=== PATIENT | female | born 1935 | race Caucasian/White ===

== ENCOUNTER 2019-02-16 06:34 | Day surgery (SDC) | payer MEDICARE, BC ==
[~2019-02-16 06:34] MED LIST: Lactated Ringers 1,000 ML IV SCH
[2019-02-16] MEDS ORDERED: Lidocaine 2% 5 ML SDV ONE (07:24)
[2019-02-16] MEDS ORDERED: Propofol 200 MG/20 ML SDV ONE ×3 (07:24→07:51)
[2019-02-16] MEDS ORDERED: Ketamine 500 mg/10 ML MDV ONE (07:27)
[2019-02-16] MEDS ORDERED: ceFAZolin 1 GM Vial ONE (07:32)
[2019-02-16] MEDS ORDERED: Bupivacaine 0.5% 30 ML SDV ONE (07:33)
--- NOTE | 2019-02-16 07:55 | PCM.PREANE ---
Preanesthetic Assessment - Anesthesia/Transfusion/Family Hx Anesthesia History: Prior Anesthesia Reaction (post op delerium after last surgerues tka and klarissa) Other Type of Anesthesia Reaction Comment: daughter states she is slow to come out of anesthesia Family History of Anesthesia Reaction: No Transfusion History: Prior Transfusion Without Reaction - Review of Systems General: No Symptoms Pulmonary: No Symptoms Cardiovascular: No Symptoms Gastrointestinal: No Symptoms Neurological: Other (diabetic neuropathy) - Physical Assessment Height: 5 ft 4 in Weight: 58.513 kg ASA Class: 3 Mental Status: Alert & Oriented x3 Airway Class: Mallampati = 3 Dentition: Reports: Edentulous ROM/Head Extension: Full Lungs: Clear to Auscultation, Normal Respiratory Effort Cardiovascular: Regular Rate, Regular Rhythm - Lab Values: Laboratory Last Values POC Glucose 213 mg/dL (60-110) H 02/16/19 07:35 - Allergies Allergies/Adverse Reactions: Allergies Allergy/AdvReac Type Severity Reaction Status Date / Time atorvastatin calcium Allergy Cannot Verified 02/15/19 09:09 [From Lipitor] Remember ezetimibe [From Zetia] Allergy Cannot Verified 02/15/19 09:09 Remember fenofibrate Allergy Cannot Verified 02/15/19 09:09 Remember gemfibrozil Allergy Cannot Verified 02/15/19 09:09 Remember hydrochlorothiazide Allergy Cannot Verified 02/15/19 09:09 Remember - Blood Blood Available: No - Anesthesia Plan Pre-Op Medication Ordered: None - Acknowledgements Anesthesia Type Planned: General Anesthesia Pt an Appropriate Candidate for the Planned Anesthesia: Yes Alternatives and Risks of Anesthesia Discussed w Pt/Guardian: Yes Pt/Guardian Understands and Agrees with Anesthesia Plan: Yes Additional Comments: PMH: ckd with egfr of 36 in 2013, cad with remote hx of ami but normal coronaries at that time, no cardiac sx now, dm2 on insulin with glucose of 210 this am, hld, htn, thyroid replacement, RA on 5 mg of prednisone, PAD/PVOD on chart but daughter not aware of carotid aortic or periph vasc problems PLAN: No benzos, light on intraoperative narcotic, propofol/sevo anesthetic with LMA, will titrate additional narcotic as needed in PACU, intraoperative zofran and iv acetaminophen. PreAnesthesia Questionnaire HEENT History: Reports: Cataract, Hard of Hearing, Impaired Vision Other HEENT History: wears glasses, top and bottom denture, left hearing aid Cardiovascular History: Reports: CAD, High Cholesterol, Hypertension, ID Respiratory History: Reports: None Gastrointestinal History: Reports: Chronic Constipation, GI Bleed Genitourinary History: Reports: Other (See Below) Other Genitourinary History: overactive bladder [employer]ER History: Reports: Musculoskeletal History: Reports: Fracture, RA Other Musculoskeletal History: hx fx femur, uses w/c but can assist with transfer Neurological History: Reports: Other (See Below) Other Neuro History: fractured vertabrae Psychiatric History: Reports: Depression Endocrine/Metabolic History: Reports: Diabetes, Type II, Hypothyroidism Hematologic History: Reports: Anemia, Blood Transfusion(s) Immunologic History: Reports: None Oncologic (Cancer) History: Reports: Other (See Below) Other Oncologic History: skin cancer to forehead Dermatologic History: Reports: Other (See Below) Other Dermatologic History: abscess to rt buttock - Infectious Disease History Infectious Disease History: Reports: Chicken Pox, Measles, MRSA, Mumps, Rubella - Past Surgical History Head Surgeries/Procedures: Reports: None HEENT Surgical History: Reports: Cataract Surgery, Other (See Below) Other HEENT Surgeries/Procedures: right eardrum reconstruction 07/24/15 Cardiovascular Surgical History: Reports: None Respiratory Surgical History: Reports: None GI Surgical History: Reports: Cholecystectomy, Colonoscopy, EGD, Hernia, Abdominal Female Surgical History: Reports: Hysterectomy, Salpingo-Oophorectomy Endocrine Surgical History: Reports: None Neurological Surgical History: Reports: None Musculoskeletal Surgical History: Reports: Amputation, Carpal Tunnel, Knee Replacement, Other (See Below) Other Musculoskeletal Surgeries/Procedures:: second toe& big toe amputation-rt foot, booker knee replacement, ORIF rt hip, ORIF rt femur Oncologic Surgical History: Reports: None Dermatological Surgical History: Reports: Skin Biopsy - SUBSTANCE USE Smoking Status *Q: Never Smoker Recreational Drug Use History: No - HOME MEDS Home Medications: Home Meds predniSONE 5 mg PO DAILY 05/04/14 [History] Aspirin 81 mg PO DAILY 03/31/16 [History] Carbamide Peroxide [Debrox 6.5% Otic Soln] 3 drop EARBOTH BEDTIME PRN 03/31/16 [ History] amLODIPine Besylate [Amlodipine Besylate] 5 mg PO DAILY 03/31/16 [History] hydrALAZINE [Apresoline] 50 mg PO BID 03/31/16 [History] Insuln Asp Prot/Insulin Aspart [NovoLOG Mix 70-30] 6 unit SUBCUT ACDINNER #1 pen 04/02/16 [Rx] Magnesium Hydroxide [Milk of Magnesia] 30 ml PO Q24H PRN 04/02/16 [History] Metoprolol Tartrate 50 mg PO BID 04/02/16 [History] Multivitamin [Multivitamins] 1 tab PO DAILY 04/02/16 [History] traMADol HCl [Tramadol HCl] 50 tab PO TID PRN #15 tablet 04/02/16 [Rx] Insulin Aspart Protam & Aspart [Novolog Mix 70-30 Flexpen Syrn] 14 unit SQ ACBREAKFAST 06/13/16 [History] Famotidine [Pepcid] 40 mg PO DAILY 02/15/19 [History] Fluorouracil 1 applic TOP ASDIRECTED 02/15/19 [History] Iron Polysaccharide Complex [Poly-Iron] 150 mg PO DAILY 02/15/19 [History] Polyethylene Glycol 3350 [MiraLAX] 1 dose PO BID 02/15/19 [History] Sulfamethoxazole/Trimethoprim [Bactrim Ds Tablet] 1 tab PO BID 02/15/19 [History ] - CURRENT (IN HOUSE) MEDS Current Meds: Current Medications Lactated Ringer's (Ringers, Lactated) 1,000 mls @ 100 mls/hr IV ASDIRECTED INGRID Discontinued Medications Bupivacaine HCl (Marcaine 0.5%) Confirm Administered Dose 30 ml .ROUTE .STK-MED ONE Stop: 02/16/19 07:34 Cefazolin Sodium (Ancef) Confirm Administered Dose 3 gm .ROUTE .STK-MED ONE Stop: 02/16/19 07:33 Ketamine HCl (Ketalar) Confirm Administered Dose 500 mg .ROUTE .STK-MED ONE Stop: 02/16/19 07:28 Lidocaine (Xylocaine-Mpf 2%) Confirm Administered Dose 5 ml .ROUTE .STK-MED ONE Stop: 02/16/19 07:25 Propofol (Diprivan 20 Ml) Confirm Administered Dose 200 mg .ROUTE .STK-MED ONE Stop: 02/16/19 07:25 Propofol (Diprivan 20 Ml) Confirm Administered Dose 200 mg .ROUTE .STK-MED ONE Stop: 02/16/19 07:26
[2019-02-16] MEDS ORDERED: fentaNYL 100 MCG/2 ML SDV ONE (08:19)
[2019-02-16] MEDS ORDERED: Ondansetron 4 MG/2 ML SDV ONE (08:38)
[2019-02-16] MEDS ORDERED: Morphine 10 MG/ML Syringe IVPUSH PRN (08:59)
[2019-02-16] MEDS ORDERED: Lactated Ringers 1,000 ML IV SCH (09:00)
--- NOTE | 2019-02-16 09:02 | PCM.OPNOTE ---
- General Post-Op/Procedure Note Date of Surgery/Procedure: 02/16/19 Operative Procedure(s): Incision and drainage right buttock abscess Pre Op Diagnosis: Right buttock abscess Post-Op Diagnosis: Right buttock abscess Anesthesia Technique: General LMA (ASA III) Primary Surgeon: Gerard Crow Fluid Replacement, Intraop: 500 EBL in mLs: 10 Surgical Drain/Tube Type: [place] Condition: Good Free Text/Narrative:: DICTATION [id number] CPT CODE 00912
[2019-02-16 11:46] VITALS: BP 90/46
[2019-02-16 11:48] VITALS: PULSE 64
--- NOTE | 2019-02-16 12:03 | OR ---
SURGEON: Gerard Crow M.D. DATE OF PROCEDURE: 02/16/2019 OPERATION PERFORMED: Incision and drainage, right buttock abscess. PRIMARY SURGEON: Gerard Crow MD. ANESTHESIA: General LMA. ASA CLASSIFICATION: III. PREOPERATIVE DIAGNOSIS: Right buttock abscess. POSTOPERATIVE DIAGNOSIS: Right buttock abscess. ESTIMATED BLOOD LOSS: 5 mL. INTRAOPERATIVE FLUID REPLACEMENT: 500 mL of crystalloid. DESCRIPTION OF PROCEDURE: The patient was taken to the operating room, placed on the operating table in the supine position. Time-out was called for appropriate identification of the patient and procedure. Following satisfactory attainment of general anesthesia with placement of an LMA, the patient was positioned in the left lateral decubitus position. Left axillary roll was placed. Care was taken to pad all bony prominences. Pillow was placed between the legs. The right buttock was then prepped with Betadine solution and sterile drapes were applied. The skin incision was made directly over the abscess and deepened through the subcutaneous tissue. This had the appearance of an inclusion cyst that was affected. All loculations were broken up. Aerobic and anaerobic cultures were obtained. Once all loculations had been broken up, the wound was irrigated with 1 L of sterile saline solution. A Katerin drain was then brought to the operating table and positioned in the abscess cavity. This was secured to the skin with a 2-0 nylon suture. The wound was then dressed with fluffs and an ABD held in place with mesh panties. The patient tolerated the procedure well. She was placed back in the supine position. Following emergence from anesthesia and extubation, she was taken to recovery room in stable condition. GIORGIO / ERNESTINA /[id number]
--- NOTE | 2019-02-16 12:16 | PCM.POSTAN ---
POST ANESTHESIA ASSESSMENT - MENTAL STATUS Mental Status: Alert, Oriented - VITAL SIGNS Vital Signs: Last Vital Signs Temp 98.2 F 02/16/19 09:40 Pulse 64 02/16/19 10:26 Resp 16 02/16/19 10:26 BP 90/46 L 02/16/19 10:15 Pulse Ox 99 02/16/19 10:26 - RESPIRATORY Respiratory Status: Respiratory Rate WNL, Airway Patent, O2 Saturation Stable - CARDIOVASCULAR CV Status: Pulse Rate WNL, Blood Pressure Stable - GASTROINTESTINAL GI Status: No Symptoms - POST OP HYDRATION Hydration Status: Adequate & Stable
--- NOTE | 2019-02-16 12:17 | PCM48HPAN ---
Post Anesthesia Note - EVALUATION WITHIN 48HRS OF ANESTHETIC Vital Signs in Normal Range: Yes Patient Participated in Evaluation: Yes Respiratory Function Stable: Yes Airway Patent: Yes Cardiovascular Function Stable: Yes Hydration Status Stable: Yes Pain Control Satisfactory: Yes Nausea and Vomiting Control Satisfactory: Yes Mental Status Recovered: Yes Vital Signs: Last Vital Signs Temp 98.2 F 02/16/19 09:40 Pulse 64 02/16/19 10:26 Resp 16 02/16/19 10:26 BP 90/46 L 02/16/19 10:15 Pulse Ox 99 02/16/19 10:26
== END 2019-02-16 11:15 | disposition home or self-care (01) ==
LOC: MW.SDS 06:34
PROVIDERS: ATTEND Surgery
DX: L02.31 Cutaneous abscess of buttock (principal); I25.10 Atherosclerotic heart disease of native coronary artery without angina pectoris; E11.9 Type 2 diabetes mellitus without complications; E11.21 Type 2 diabetes mellitus with diabetic nephropathy; E11.42 Type 2 diabetes mellitus with diabetic polyneuropathy; K21.9 Gastro-esophageal reflux disease without esophagitis; I10 Essential (primary) hypertension; E03.9 Hypothyroidism, unspecified; M06.9 Rheumatoid arthritis, unspecified; F32.9 Major depressive disorder, single episode, unspecified; E78.00 Pure hypercholesterolemia, unspecified; Z79.4 Long term (current) use of insulin; Z88.8 Allergy status to other drugs, medicaments and biological substances; Z79.899 Other long term (current) drug therapy; Z79.82 Long term (current) use of aspirin; Z79.52 Long term (current) use of systemic steroids
CPT/HCPCS: 10060; 82962; 87070; 87075; 87205; J0131; J2405; J2704; J3010; J3490; J7120; J0690; J2001